=== PATIENT | male | born 1940 | race Caucasian/White ===

== ENCOUNTER 2016-07-30 17:01 | Emergency (ER) | payer MEDICARE ==
[~2016-07-30] VITALS: Ht 180.3 cm; Wt 78.0 kg
[~2016-07-30 17:01] MED LIST: ENAL20TA PO; EZET10 PO; FENO50TA PO; FURO1TAB93 OR; IRBE150T51 PO; LIPI40TA PO; QUET1TAB67 PO; SPIR25TA PO; TAMS0.4C67 PO; VESI5TAB PO
[2016-07-30 17:10] VITALS: BP 130/67; PULSE 78; RESP 16; TEMP 97.8; O2SAT 99
[2016-07-30] MEDS ORDERED: MAGNSOL2 PO (17:30)
[2016-07-30] MEDS ORDERED: ENEMENE6 RECTAL (17:30)
--- NOTE | 2016-07-30 17:30 | PD ---
HPI Chief Complaint: GI Complaint Time Seen by Provider: 17:21 Travel History International Travel<30 days: No Contact w/Intl Traveler<30days: No Traveled to known affect area: No History of Present Illness HPI This is a 76-year-old male who presents to the emergency department reporting constipation for 3 days. He says he usually has a bowel movement every day but over the threat past 3 days he hasn't had one. He says he takes MiraLAX every day routinely, and today he added a stool softener but that's not helping. He doesn't feel any rectal discomfort, abdominal pain, nausea or vomiting. His constipation as moderate, constant, and he says he has no associated symptoms. 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.) Endocrine: No Genitourinary: Yes Hypertension: Yes Immune Disorder: No Implanted Vascular Access Dvce: Yes Musculoskeletal: No Neurologic: Yes Psychiatric: Yes Reproductive: No Respiratory: No Immunizations Current: No Seizures: Yes Past Surgical History Cardiac Surgery: Yes (CABG) Coronary Artery Bypass Graft: Yes Coronary Stent: Yes Other Surgery: Yes (VASCULAR SURGERY ON RIGHT LEG AND ARTERY TRANSPLANT AND LEFT CAROTID) Social History Alcohol Use: No Tobacco Use: No Substance Use: No Allergies-Medications (Allergen,Severity, Reaction): Coded Allergies: No Known Allergies (Verified , 07/30/16) Reported Meds & Prescriptions Reported Meds & Active Scripts Active Reported Enalapril Maleate 20 Mg Tab 20 Mg PO HS Lasix (Furosemide) 40 Mg Tab 20 Mg OR DAILY Seroquel (Quetiapine Fumarate) 25 Mg Tab 25 Mg PO BID Flomax (Tamsulosin HCl) 0.4 Mg Cap 0.4 Mg PO DAILY Avalide 150/12.5 (HCTZ/Irbesartan) Tab 1 Tab PO DAILY Zetia (Ezetimibe) 10 Mg Tab 10 Mg PO HS Vesicare (Solifenacin) 5 Mg Tab 2.5 Mg PO HS * SWALLOW TABLET WHOLE * Spironolactone 25 Mg Tab 25 Mg PO DAILY Lipitor (Atorvastatin Calcium) 40 Mg Tab 40 Mg PO HS Tricor (Fenofibrate) 145 Mg Tab 145 Mg PO HS Review of Systems Except as stated in HPI: all other systems reviewed are Neg Physical Exam Narrative GENERAL:Well appearing, slow to answer questions. SKIN: Focused skin assessment warm and dry. HEAD: Atraumatic. Normocephalic. EYES: Pupils equal and round. No injection or drainage. ENT: Moist mucous membranes NECK: Trachea midline. CARDIOVASCULAR: Regular rate and rhythm. No murmur appreciated. RESPIRATORY: Clear to auscultation. Breath sounds equal bilaterally. GASTROINTESTINAL: Abdomen soft, non-tender, nondistended. MUSCULOSKELETAL: No obvious deformities. NEUROLOGICAL: Awake and alert. No obvious cranial nerve deficits. Moving all extremities. PSYCHIATRIC: Appropriate mood and affect; insight and judgment normal. Data Data Last Documented VS Vital Signs Date Time Temp Pulse Resp B/P Pulse Ox O2 Delivery O2 Flow Rate FiO2 07/30/16 17:10 97.8 78 16 130/67 99 MDM Medical Decision Making Medical Screen Exam Complete: Yes Emergency Medical Condition: Yes Differential Diagnosis Constipation, obstruction, fecal impaction Narrative Course This is a 76-year-old male who presents to the emergency department reporting constipation. He has no associated symptoms. He looks very well. I think he can try magnesium citrate and an enema and continue MiraLAX. I don't think this reflects an emergency. Patient will be discharged home. Diagnosis Primary Impression: Constipation Qualified Code: K59.00 - Constipation, unspecified constipation type Patient Instructions: General Instructions Additional Instructions: If you develop severe or worsening abdominal pain, fever>100.4, persistent vomiting or inability to eat or drink return to the emergency department immediately. Follow up with your primary care physician in 1-2 days for a check-up. Med/Other Pt SpecificInfo: Prescription(s) given Scripts Mineral Oil Enema 118 Ml Enem1 Ea RECTAL ONCE #1 BOTTLE Ref 0 Prov:Jazzy Negro MD 07/30/16 Magnesium Citrate Liq 300 Ml Aqa648 Ml PO ONCE PRN (CONSTIPATION) #1 BOTTLE Ref 0 Prov:Jazzy Negro MD 07/30/16 Disposition: 01 DISCHARGE HOME Condition: Stable Jazzy Negro MD Jul 30, 2016 17:30
== END 2016-07-30 17:46 | disposition home or self-care (01) ==
LOC: PHED 17:01
DX: K59.00 Constipation, unspecified (principal); I48.91 Unspecified atrial fibrillation; I10 Essential (primary) hypertension; Z79.01 Long term (current) use of anticoagulants
CPT/HCPCS: 99283